=== PATIENT | male | born 1935 | race Caucasian/White ===

== ENCOUNTER 2020-01-08 09:00 | Emergency (ER) | payer MEDICARE, OTHER ==
[2020-01-08] MEDS ORDERED: ORPHENADRINE 30 MG/ML 2 ML VIAL IM STA (09:11)
[2020-01-08] MEDS ORDERED: MORPHINE SULFATE 4 MG/ML SYRINGE IM STA (09:11)
--- NOTE | 2020-01-08 09:12 | ED ---
Back Pain HPI - General Chief Complaint: Back Pain/Injury Stated Complaint: Back pain Time Seen by Provider: 01/08/20 09:02 Source: patient, RN notes reviewed, old records reviewed Limitations: no limitations - History of Present Illness Initial Comments: Patient's an 84-year-old male who presents emergency department today for evaluation for lower back and tailbone pain after he fell on Thursday. Patient reports that he was pulling up a nail from a floorboard with a hammer, gave a pull and fell backward onto his buttocks. Patient denies any head or neck injury. Patient reports he has pain with range of motion of his back since that time and pain with sitting. Patient states she's been taking aspirin at home. He denies any saddle anesthesias or abdominal pain. He denies any chest pain shortness of breath, abdominal pain. He denies dysuria or hematuria. He reports that he's had difficult time with having a bowel movement just she'll pain with sitting on the toilet. - Related Data Home Medications Medication Instructions Recorded Confirmed Aspirin EC [Ecotrin Low Dose] 81 mg PO DAILY 01/08/20 01/08/20 Atorvastatin [Lipitor] 20 mg PO DAILY 01/08/20 01/08/20 Previous Rx's Medication Instructions Recorded Acetaminophen-Codeine 300-30mg 1 tab PO Q6H PRN 3 Days #12 tablet 01/08/20 [Tylenol w/codeine #3] Orphenadrine [Norflex] 100 mg PO ONCE #12 tablet.er 01/08/20 amLODIPine [Norvasc] 5 mg PO DAILY #14 tab 01/08/20 bisacodyL [Dulcolax] 5 mg PO DAILY #14 tablet. 01/08/20 Allergies Allergy/AdvReac Type Severity Reaction Status Date / Time No Known Allergies Allergy Verified 01/08/20 10:21 Review of Systems ROS Statement: Those systems with pertinent positive or pertinent negative responses have been documented in the HPI. ROS Other: All systems not noted in ROS Statement are negative. Past Medical History Past Medical History: CVA/TIA, Hyperlipidemia History of Any Multi-Drug Resistant Organisms: None Reported Past Surgical History: No Surgical Hx Reported Past Psychological History: No Psychological Hx Reported Smoking Status: Never smoker Past Alcohol Use History: None Reported Past Drug Use History: None Reported General Exam - General Exam Comments Initial Comments: 84-year-old male. Alert and oriented 3. No distress. Limitations: no limitations General appearance: alert, in no apparent distress Head exam: Present: atraumatic, normocephalic, normal inspection Eye exam: Present: normal appearance, PERRL, EOMI. Absent: scleral icterus, conjunctival injection, periorbital swelling ENT exam: Present: normal exam, mucous membranes moist Neck exam: Present: normal inspection. Absent: tenderness, meningismus, lymphadenopathy Respiratory exam: Present: normal lung sounds bilaterally. Absent: respiratory distress, wheezes, rales, rhonchi, stridor Cardiovascular Exam: Present: regular rate, normal rhythm, normal heart sounds. Absent: systolic murmur, diastolic murmur, rubs, gallop, clicks GI/Abdominal exam: Present: soft, normal bowel sounds. Absent: distended, tenderness, guarding, rebound, rigid Extremities exam: Present: normal inspection, full ROM, normal capillary refill. Absent: tenderness, pedal edema, joint swelling, calf tenderness Back exam: Present: normal inspection, tenderness (coccyx and lumbar spine) Neurological exam: Present: alert, oriented X3, CN II-XII intact Psychiatric exam: Present: normal affect, normal mood Skin exam: Present: warm, dry, intact, normal color. Absent: rash Course Vital Signs 01/08/20 09:06 Temperature 98.7 F Pulse Rate 60 Respiratory 18 Rate Blood Pressure 157/108 O2 Sat by Pulse 94 L Oximetry Medical Decision Making - Medical Decision Making Patient is a pleasant 84-year-old male who presents the emergency department today with lumbar back pain pain with movement and sitting after falling onto his buttocks from ripping up a nail from a floor board. At this time Patient reports pain is improved with laying down. It's worse with sitting. And the Patient has normal pulses and is neurovascularly intact in lower extremities. He denies abdominal pain or other complaints. X-ray showed no evidence compression fracture but evidence of degenerative disc disease. There is evidence of a 4.5 cm abdominal aortic aneurysm. Patient reports that he is aware of this. He reports that this is monitored in [place]. He reports he had an ultrasound done 1 year ago he believes it measured to be near 4 cm at that time. We discussed these findings that Patient should've follow-up again for reevaluation and can give the Patient follow-up for a back specialist as well as vascular specialist in the area. He reports that he does not take blood pres sure medication will put the Patient on a low-dose Bystolic, BP is is 150/100 and ER. I discussed the Patient will be treated for coccyx contusion and given prescription for pain medication and stool softeners use as well. I discussed the Patient needs to apply heat and ice over the area and also to use a doughnut pillow to take the pressure off the coccyx for pain. - Radiology Data Radiology results: report reviewed X-ray of sacrum coccyx is normal without any fracture. No acute fracture dislocation seen on lumbar spine. Disposition Clinical Impression: Lower back pain, Coccyx contusion, Abdominal aortic aneurysm (AAA) 3.0 cm to 5.5 cm in diameter in male, Single episode of hypertension Disposition: HOME SELF-CARE Condition: Good Instructions (If sedation given, give patient instructions): Acute Low Back Pain (ED) Additional Instructions: Patient has a take the medication as prescribed. He can use stool softeners to help promote bowel movements as well. Recommended using a "doughnut pillow" To take pressure off of the coccyx and lower back when sitting. Patient should follow-up with PCP Dr. Santos for hypertension and Back pain continues to persist, Follow-up with orthopedic back specialist Dr. Humphrey. Also with a known history of Aortic anuerysm you can follow up with Vascular surgery. Return to ED if any alarming signs or symptoms occur Prescriptions: bisacodyL [Dulcolax] 5 mg PO DAILY #14 tablet. Orphenadrine [Norflex] 100 mg PO ONCE #12 tablet.er amLODIPine [Norvasc] 5 mg PO DAILY #14 tab Acetaminophen-Codeine 300-30mg [Tylenol w/codeine #3] 1 tab PO Q6H PRN 3 Days #12 tablet PRN Reason: Pain Is patient prescribed a controlled substance at d/c from ED?: Yes If prescribed controlled substance>3 days was MAPS reviewed?: Prescribed <3 Days If opioid is for acute pain is fill amount 7 days or less?: Yes If Rx opioid, was Start Talking consent form obtained?: Yes Referrals: None,Stated [Primary Care Provider] - 1-2 days Taurus Santos [STAFF PHYSICIAN] - 1-2 days Pedro Bob DO [Doctor of Osteopathic Medicine] - 1-2 days Caleb Schrader DO [Doctor of Osteopathic Medicine] - 1-2 days Time of Disposition: 10:27
[2020-01-08 09:23] VITALS: BP 157/108; PULSE 60; RESP 18; TEMP 98.7
--- NOTE | 2020-01-08 09:55 | XR ---
EXAMINATION TYPE: XR lumbar spine 2 or 3V DATE OF EXAM: 01/08/2020 CLINICAL HISTORY: pain TECHNIQUE: Three views of the lumbar spine are submitted. COMPARISON: None. FINDINGS: There are 5 lumbar type vertebral bodies identified. The lumbar spine shows satisfactory alignment w ithout evidence of acute fracture or dislocation. Vertebral body heights are within normal limits. Mild multilevel degenerative disc disease and spondylosis. 4.5 cm aneurysm of the distal abdominal ao rta. IMPRESSION: No acute fracture or dislocation is seen in the lumbar spine. ICD 10 NO FRACTURE, INITIAL EVALUATION
--- NOTE | 2020-01-08 09:56 | XR ---
EXAMINATION TYPE: XR sacrum coccyx DATE OF EXAM: 01/08/2020 CLINICAL HISTORY: pain TECHNIQUE: Three views of the sacrum and coccyx are submitted. COMPARISON: Sacral alae appear symmetric. No evidence for fracture or bony lesion. Sacroiliac joints are within normal limits. Visualized coccygeal segments are free of fracture or lesion. IMPRESSION: Normal study
[2020-01-08] MEDS ORDERED: ACET/COD 300 MG/30 MG STARTER PACK 6 TAB BTL PO STA (11:09)
== END 2020-01-08 11:34 | disposition home or self-care (01) ==
LOC: EC 09:00
DX: S30.0XXA Contusion of lower back and pelvis, initial encounter (principal); I71.4 Abdominal aortic aneurysm, without rupture; I10 Essential (primary) hypertension; E78.5 Hyperlipidemia, unspecified; Z79.899 Other long term (current) drug therapy; Z79.82 Long term (current) use of aspirin; Z86.73 Personal history of transient ischemic attack (TIA), and cerebral infarction without residual deficits; W18.30XA Fall on same level, unspecified, initial encounter; Y93.89 Activity, other specified
CPT/HCPCS: 99284 ×2; 96372 ×3; 72100; 72220; J2270; J2360

== ENCOUNTER 2020-02-01 10:39 | Emergency (ER) | payer MEDICARE, OTHER ==
[2020-02-01 10:49] VITALS: RESP 18; TEMP 98.3
[2020-02-01] MEDS ORDERED: SODIUM CHLORIDE 0.9% 1,000 ML IV STA (11:55)
[2020-02-01 12:17] LABS: Appearance,Urine Clear (Clear); Bilirubin,Urine Negative (Negative); Blood,Urine Negative (Negative); Color,Urine Yellow; Glucose,Urine (UA) Negative (Negative); Ketones,Urine Negative (Negative); Leukocyte Esterase,Urine Negative (Negative); Nitrite,Urine Negative (Negative); PH, Urine 6.5 (5.0-8.0); Protein,Urine Negative (Negative); Specific Gravity,Urine 1.018 (1.001-1.035); Urobilinogen,Urine <2.0 mg/dL (<2.0)
[2020-02-01 12:18] LABS: Basophils % (A) 0 %; Eosinophils # (A) 0.1 k/uL (0-0.7); Eosinophils % (A) 1 %; HCT 47.1 % (39.0-53.0); HGB 15.3 gm/dL (13.0-17.5); Lymphocytes # (A) 2.4 k/uL (1.0-4.8); Lymphocytes % (A) 32 %; MCH 31.3 pg (25.0-35.0); MCHC 32.5 g/dL (31.0-37.0); MCV 96.5 fL (80.0-100.0); Mean Platelet Volume 8.6; Monocytes # (A) 0.5 k/uL (0-1.0); Monocytes % (A) 6 %; Neutrophils # (A) 4.3 k/uL (1.3-7.7); Neutrophils % (A) 58 %; Platelet Count 167 k/uL (150-450); RBC 4.87 m/uL (4.30-5.90); RDW 13.4 % (11.5-15.5); WBC 7.4 k/uL (3.8-10.6)
[2020-02-01 12:20] LABS: ALT 17 U/L (4-49); AST 25 U/L (17-59); African American GFR (CKD) >90 (>60 ml/min/1.73 sqM); Albumin 3.4 g/dL (3.5-5.0); Alkaline Phosphatase 104 U/L (38-126); Amylase 44 U/L (30-110); Anion Gap 5 mmol/L; Blood Urea Nitrogen 11 mg/dL (9-20); Calcium 8.6 mg/dL (8.4-10.2); Carbon Dioxide 26 mmol/L (22-30); Chloride 109 mmol/L (98-107); Glucose 117 mg/dL (74-99); Lipase 64 U/L (23-300); Non-African American GFR(CKD) >90 (>60 ml/min/1.73 sqM); Potassium 4.1 mmol/L (3.5-5.1); Sodium 140 mmol/L (137-145); Total Bilirubin 0.6 mg/dL (0.2-1.3); Total Protein 6.2 g/dL (6.3-8.2)
[2020-02-01 12:22] LABS: INR 0.9 (<1.2); Partial Thromboplastin Time 22.4 sec (22.0-30.0); Prothrombin Time 9.8 sec (9.0-12.0)
--- NOTE | 2020-02-01 12:35 | ED ---
Extremity Problem HPI - General Chief complaint: Extremity Problem,Nontraumatic Stated complaint: Groin Pain Time Seen by Provider: 02/01/20 11:48 Source: EMS, RN notes reviewed, old records reviewed Mode of arrival: EMS Limitations: no limitations - History of Present Illness Initial comments: 84-year-old male presents return today with complaints of left-sided groin pain has been intermittent for the past 2 years. Patient reports symptoms have been intermittent. He reports he had an onset today but it didn't seem to improve until eating a blueberry muffin for breakfast. He reports it is a 4/10 now. He denies any change in stools or urination. He has a known history of AAA that his monitor with in [place]. He is here for the winter time. Patient states that he has no back pain. - Related Data Home Medications Medication Instructions Recorded Confirmed Aspirin EC [Ecotrin Low Dose] 81 mg PO DAILY 01/08/20 02/01/20 Atorvastatin [Lipitor] 20 mg PO DAILY 01/08/20 02/01/20 Allergies Allergy/AdvReac Type Severity Reaction Status Date / Time No Known Allergies Allergy Verified 02/01/20 13:22 Review of Systems ROS Statement: Those systems with pertinent positive or pertinent negative responses have been documented in the HPI. ROS Other: All systems not noted in ROS Statement are negative. Past Medical History Past Medical History: CVA/TIA, Hyperlipidemia History of Any Multi-Drug Resistant Organisms: None Reported Past Surgical History: No Surgical Hx Reported Past Psychological History: No Psychological Hx Reported Smoking Status: Former smoker Past Alcohol Use History: Occasional Past Drug Use History: None Reported General Exam - General Exam Comments Initial Comments: 84-year-old male. Alert and oriented. No distress. Limitations: no limitations General appearance: alert, in no apparent distress Head exam: Present: atraumatic, normocephalic, normal inspection Eye exam: Present: normal appearance, PERRL, EOMI. Absent: scleral icterus, conjunctival injection, periorbital swelling ENT exam: Present: normal exam, mucous membranes moist Neck exam: Present: normal inspection. Absent: tenderness, meningismus, lymphadenopathy Respiratory exam: Present: normal lung sounds bilaterally. Absent: respiratory distress, wheezes, rales, rhonchi, stridor Cardiovascular Exam: Present: regular rate, normal rhythm, normal heart sounds. Absent: systolic murmur, diastolic murmur, rubs, gallop, clicks GI/Abdominal exam: Present: soft, normal bowel sounds. Absent: distended, tenderness, guarding, rebound, rigid Extremities exam: Present: normal inspection, full ROM, normal capillary refill. Absent: tenderness, pedal edema, joint swelling, calf tenderness Back exam: Present: normal inspection, full ROM Neurological exam: Present: alert, oriented X3, CN II-XII intact Psychiatric exam: Present: normal affect, normal mood Skin exam: Present: warm, dry, intact, normal color. Absent: rash Course Vital Signs 02/01/20 10:41 Temperature 98.3 F Pulse Rate 86 Respiratory 18 Rate Blood Pressure 169/87 O2 Sat by Pulse 95 Oximetry Medical Decision Making - Medical Decision Making 84-year-old male presents emergency department today for evaluation which she complaint of left lower quadrant abdominal pain. Patient symptoms reportedly started intimately for the past 2 years. He states it seems worse today but did improve after eating a muffin. He has a known history of AAA aortic aneurysm which is being monitored by a physician in [place]. At this time Patient has no back pain. His normal pulses in lower extremities. No rash or evidence of hernia and left lower quadrant. Discussed conservative or possible diverticulitis of any onset of pain. At this time patient's labs reviewed and unremarkable. CT abdomen and pelvis shows evidence of aneurysm. Stable from patient's previous measurement that he states was 4.2 cm. He states that he has no other complaints at this time. Patient will be discharged with following up with primary care doctors locally. I discussed return parameters. - Lab Data Result diagrams: 02/01/20 10:45 02/01/20 11:59 Lab Results 02/01/20 02/01/20 02/01/20 Range/Units 10:45 11:59 11:59 WBC 7.4 (3.8-10.6) k/uL RBC 4.87 (4.30-5.90) m/uL Hgb 15.3 (13.0-17.5) gm/dL Hct 47.1 (39.0-53.0) % MCV 96.5 (80.0-100.0) fL MCH 31.3 (25.0-35.0) pg MCHC 32.5 (31.0-37.0) g/dL RDW 13.4 (11.5-15.5) % Plt Count 167 (150-450) k/uL MPV 8.6 Neutrophils % 58 % Lymphocytes % 32 % Monocytes % 6 % Eosinophils % 1 % Basophils % 0 % Neutrophils # 4.3 (1.3-7.7) k/uL Lymphocytes # 2.4 (1.0-4.8) k/uL Monocytes # 0.5 (0-1.0) k/uL Eosinophils # 0.1 (0-0.7) k/uL Basophils # 0.0 (0-0.2) k/uL PT 9.8 (9.0-12.0) sec INR 0.9 (<1.2) APTT 22.4 (22.0-30.0) sec Sodium (137-145) mmol/L Potassium (3.5-5.1) mmol/L Chloride (98-107) mmol/L Carbon Dioxide (22-30) mmol/L Anion Gap mmol/L BUN (9-20) mg/dL Creatinine (0.66-1.25) mg/dL Est GFR (CKD-EPI)AfAm (>60 ml/min/1.73 sqM) Est GFR (CKD-EPI)NonAf (>60 ml/min/1.73 sqM) Glucose (74-99) mg/dL Calcium (8.4-10.2) mg/dL Total Bilirubin (0.2-1.3) mg/dL AST (17-59) U/L ALT (4-49) U/L Alkaline Phosphatase (38-126) U/L Total Protein (6.3-8.2) g/dL Albumin (3.5-5.0) g/dL Amylase (30-110) U/L Lipase (23-300) U/L Urine Color Yellow Urine Appearance Clear (Clear) Urine pH 6.5 (5.0-8.0) Ur Specific [place] 1.018 (1.001-1.035) Urine Protein Negative (Negative) Urine Glucose (UA) Negative (Negative) Urine Ketones Negative (Negative) Urine Blood Negative (Negative) Urine Nitrite Negative (Negative) Urine Bilirubin Negative (Negative) Urine Urobilinogen <2.0 (<2.0) mg/dL Ur Leukocyte Esterase Negative (Negative) 02/01/20 Range/Units 11:59 WBC (3.8-10.6) k/uL RBC (4.30-5.90) m/uL Hgb (13.0-17.5) gm/dL Hct (39.0-53.0) % MCV (80.0-100.0) fL MCH (25.0-35.0) pg MCHC (31.0-37.0) g/dL RDW (11.5-15.5) % Plt Count (150-450) k/uL MPV Neutrophils % % Lymphocytes % % Monocytes % % Eosinophils % % Basophils % % Neutrophils # (1.3-7.7) k/uL Lymphocytes # (1.0-4.8) k/uL Monocytes # (0-1.0) k/uL Eosinophils # (0-0.7) k/uL Basophils # (0-0.2) k/uL PT (9.0-12.0) sec INR (<1.2) APTT (22.0-30.0) sec Sodium 140 (137-145) mmol/L Potassium 4.1 (3.5-5.1) mmol/L Chloride 109 H (98-107) mmol/L Carbon Dioxide 26 (22-30) mmol/L Anion Gap 5 mmol/L BUN 11 (9-20) mg/dL Creatinine 0.56 L (0.66-1.25) mg/dL Est GFR (CKD-EPI)AfAm >90 (>60 ml/min/1.73 sqM) Est GFR (CKD-EPI)NonAf >90 (>60 ml/min/1.73 sqM) Glucose 117 H (74-99) mg/dL Calcium 8.6 (8.4-10.2) mg/dL Total Bilirubin 0.6 (0.2-1.3) mg/dL AST 25 (17-59) U/L ALT 17 (4-49) U/L Alkaline Phosphatase 104 (38-126) U/L Total Protein 6.2 L (6.3-8.2) g/dL Albumin 3.4 L (3.5-5.0) g/dL Amylase 44 (30-110) U/L Lipase 64 (23-300) U/L Urine Color Urine Appearance (Clear) Urine pH (5.0-8.0) Ur Specific [place] (1.001-1.035) Urine Protein (Negative) Urine Glucose (UA) (Negative) Urine Ketones (Negative) Urine Blood (Negative) Urine Nitrite (Negative) Urine Bilirubin (Negative) Urine Urobilinogen (<2.0) mg/dL Ur Leukocyte Esterase (Negative) - Radiology Data Radiology results: report reviewed Abdominal aortic aneurysm and incorporate to 7 days. Some focal bulging 3.5 cm fusiform prominence of the present superior to the aneurysm. Hypotension that he is within the liver may be cysts. Other etiologies however are not excluded. Mild diverticulosis without evidence of acute diverticulitis. No suspicious left lower quadrant abnormality to account for patient's pain. Disposition Clinical Impression: LLQ pain Disposition: HOME SELF-CARE Condition: Good Instructions (If sedation given, give patient instructions): Chronic Abdominal Pain (ED) Additional Instructions: Follow-up with primary care doctors. Return to the ED if any alarming signs or symptoms occur. Recommended following up with vascular surgeon in regards to aortic aneurysm. Is patient prescribed a controlled substance at d/c from ED?: No Referrals: Nonstaff,Physician [Primary Care Provider] - 1-2 days Angeles Cueva DO [STAFF PHYSICIAN] - 1-2 days Taurus Santos [STAFF PHYSICIAN] - 1-2 days Time of Disposition: 13:59
--- NOTE | 2020-02-01 13:33 | CT ---
EXAMINATION TYPE: CT abdomen pelvis w con DATE OF EXAM: 02/01/2020 COMPARISON: None INDICATION: LLQ pain DLP: 1721.7 mGycm, Automated exposure control for dose reduction was used. CONTRAST: 100 mL of Isovue 300. Study performed without Oral Contrast TECHNIQUE: Axial images were obtained from above the diaphragm to the pubic rami in the axial plane a t 5 mm thick sections. Reconstructed images are reviewed on the computer in the coronal plane. FINDINGS: Limited CT sections are obtained the lung bases. Small amount of pulmonary fibrosis may be in the pe riphery of the lung bases. Coronary artery calcification is present. CT ABDOMEN: Liver: 2.3 cm hypodensities are within the medial right lobe liver likely represent cysts. Spleen: Normal Pancreas: Normal Adrenal glands: The adrenal glands are normal. Gallbladder: Normal Kidneys: No masses are evident. No hydronephrosis is present. No cysts are present. Delayed images were obtained through the kidneys, which remain unremarkable. Aorta: Vascular calcification is within the aorta. There is some fusiform prominence of the mid abdo jaylene aorta with an AP dimension of 3.5 cm. Focal bulge may be present. Series 201 image 54. More inf erior there is aneurysm with an AP diameter 4.2 cm. Inferior vena cava: Normal. CT PELVIS: Loops of bowel within the abdomen and pelvis are normal. The study is without oral contrast limit ing bowel evaluation. Appendix: Not identified. No suspicious dilated tubular structure or inflammatory changes are evident . Urinary bladder: Normal. Genitourinary structures: Prostate has some prominence and calcification. Osseous structures: No suspicious lytic or sclerotic lesions. Degenerative changes and some mild comp ression deformities within the thoracolumbar junction are present. IMPRESSIONS: 1. Abdominal aortic aneurysm measuring 4.2 cm. Some focal bulging at area of 3.5 cm fusiform promine nce may be present just superior to the aneurysm. 2. Hypodensities within the liver may be cysts. Other etiologies however are not excluded. 3. Mild diverticulosis without evidence of acute diverticulitis. 4. No suspicious left lower quadrant abnormality to account for patient's pain
[2020-02-01 14:37] VITALS: BP 165/78; PULSE 78
== END 2020-02-01 14:43 | disposition home or self-care (01) ==
LOC: EC 10:39
DX: I71.4 Abdominal aortic aneurysm, without rupture (principal); R10.32 Left lower quadrant pain; E78.5 Hyperlipidemia, unspecified; Z79.82 Long term (current) use of aspirin; Z79.899 Other long term (current) drug therapy; Z86.73 Personal history of transient ischemic attack (TIA), and cerebral infarction without residual deficits; Z87.891 Personal history of nicotine dependence
CPT/HCPCS: 36415; 80053; 82150; 83690; 85025; 85610; 85730; 81003; 74177; 99285; 96360; 96361 ×2; Q9967

== ENCOUNTER → 2020-06-19 | Outpatient (CLI) | payer MEDICARE, OTHER ==
--- NOTE | 2020-06-19 11:23 | US ---
EXAMINATION TYPE: US duplex aorta DATE OF EXAM: 06/19/2020 COMPARISON: CT February 01, 2020 CLINICAL HISTORY: Z13.6 screening AAA. EXAM MEASUREMENTS: Abdominal Aorta: Proximal: obscured by overlying midline bowel gas Mid: 2.6 x 2.4cm Distal: 3.7 x 4.2cm Right Iliac: 1.4 x 1.4cm Left Iliac: 1.4 x 1.3cm Distal AAA IMPRESSION: Distal AAA up to 4.2 cm transversely over a roughly 4 cm length. No extension into common iliac arteries. At minimum annual ultrasound surveillance is advised.
== END | disposition home or self-care (01) ==
LOC: RADUSWWP 10:23
PROVIDERS: ATTEND Family Medicine
DX: Z13.6 Encounter for screening for cardiovascular disorders (principal); I71.4 Abdominal aortic aneurysm, without rupture
CPT/HCPCS: 93979

== ENCOUNTER 2021-08-22 10:22 | Day surgery (SDC) | payer MEDICARE, OTHER ==
[~2021-08-22 10:22] MED LIST: ALPRAZolam 0.25 MG TAB PO PRN; ALPRAZolam 0.5 MG TAB PO PRN; ASPIRIN 325 MG TAB PO STA; ATORVASTATIN 80 MG TAB PO STA; HEPARIN SODIUM,PORCINE 10,000 UNIT in SODIUM CHLORIDE 0.9% 1,000 ML IRRIGATION PRN; HEPARIN SODIUM,PORCINE 2,500 UNIT in SODIUM CHLORIDE 0.9% 250 ML IRRIGATION PRN; NITROGLYCERIN SL TABS 0.4 MG TAB SUBLINGUAL PRN; SODIUM CHLORIDE 0.9% 1,000 ML in EMPTY BAG 1 BAG IV SCH
[2021-08-22 10:56] VITALS: TEMP 98.1
[2021-08-22 10:56] LABS: Basophils % (A) 0 %; Eosinophils # (A) 0.1 k/uL (0-0.7); Eosinophils % (A) 1 %; HGB 15.7 gm/dL (13.0-17.5); Lymphocytes # (A) 2.4 k/uL (1.0-4.8); Lymphocytes % (A) 37 %; MCH 33.2 pg (25.0-35.0); MCHC 32.7 g/dL (31.0-37.0); MCV 101.7 fL (80.0-100.0); Macrocytosis Slight; Mean Platelet Volume 8.4; Monocytes # (A) 0.4 k/uL (0-1.0); Monocytes % (A) 6 %; Neutrophils # (A) 3.5 k/uL (1.3-7.7); Neutrophils % (A) 53 %; Platelet Count 164 k/uL (150-450); RBC 4.72 m/uL (4.30-5.90); RDW 13.3 % (11.5-15.5); WBC 6.5 k/uL (3.8-10.6)
[2021-08-22] MEDS ORDERED: SODIUM CHLORIDE 0.9% 1,000 ML IV ONE (10:56)
[2021-08-22 11:06] LABS: African American GFR (CKD) >90 (>60 ml/min/1.73 sqM); Anion Gap 7 mmol/L; Blood Urea Nitrogen 9 mg/dL (9-20); Calcium 8.6 mg/dL (8.4-10.2); Carbon Dioxide 25 mmol/L (22-30); Chloride 107 mmol/L (98-107); Glucose 131 mg/dL (74-99); Non-African American GFR(CKD) >90 (>60 ml/min/1.73 sqM); Sodium 139 mmol/L (137-145)
[2021-08-22 11:09] LABS: Potassium 4.8 mmol/L (3.5-5.1)
[2021-08-22] MEDS ORDERED: fentaNYL (PF) 50 MCG/ML 2 ML AMP ONE (12:13)
[2021-08-22] MEDS ORDERED: HEPARIN SODIUM 1,000 UN/ML (10ML VL) ONE (12:13)
[2021-08-22] MEDS ORDERED: VERAPAMIL 2.5 MG/ML 2 ML AMP ONE (12:13)
[2021-08-22] MEDS ORDERED: fentaNYL (PF) 50 MCG/ML 2 ML AMP IVP ONE (12:34)
[2021-08-22] MEDS ORDERED: LIDOCAINE 1% INJ 10MG/ML (5 ML VIAL-PF) SQ ONE (12:35)
[2021-08-22] MEDS ORDERED: MIDAZOLAM 2 MG/2 ML VIAL IVP ONE (12:35)
[2021-08-22] MEDS ORDERED: VERAPAMIL SYRINGE (5 MG/10 ML) INTRAARTER ONE ×2 (12:37→12:40)
[2021-08-22] MEDS ORDERED: HEPARIN SODIUM 1,000 UN/ML (10ML VL) IV ONE (12:45)
[2021-08-22] MEDS ORDERED: IOPAMIDOL-370 50ML BTL INJ ONE (13:05)
[2021-08-22] MEDS ORDERED: IOPAMIDOL-370 125ML BTL INJ ONE (13:05)
--- NOTE | 2021-08-22 13:13 | P.CARDCATH ---
Description of Procedure: PROCEDURES PERFORMED: Left heart catheterization, bilateral coronary angiography, left ventriculogram INDICATION: Cardiomyopathy, severely elevated calcium score HISTORY: Patient is pleasant 85-year-old male with history of elevated calcium score who has been having dyspnea with mild to moderate activity and was found to have mildly decreased ejection fraction 40-45% by echo. Therefore heart catheterization was recommended. CONSENT:I have discussed the risks, benefits and alternative therapies for the above-mentioned procedure and for both sedation/analgesia as well as necessary blood product administration, if indicated, as they pertain to this patient. The patient has indicated understanding and acceptance of the risks and procedures discussed. PROCEDURE: After the risks, benefits and alternatives of the above mentioned procedure explained in detail with the patient, informed consent was obtained. Patient was taken to the catheterization lab and prepped and draped in usual fashion. 1% lidocaine was used to anesthetize the right radial artery. A 6- Cymro sheath was placed in the right radial artery using modified Seldinger technique. Left coronary angiography was performed with a 5-Cymro JL 3.5 catheter and right coronary angiography was performed with a 5-Cymro JR5 catheter in various views. A 5-Cymro FR5 catheter was inserted into the left ventricle and pressure measurements were obtained. A 6-Cymro angled pigtail catheter was then placed in the left ventricle and left ventriculogram was per formed in the BOYLE projection with power injection. The right radial sheath was removed and a TR band was placed with hemostasis achieved. The patient tolerated the procedure well. Patient was transported back to the post catheterization holding area in stable condition. Conscious Sedation: Patient was monitored under the direct supervision of vision of myself for conscious sedation using Versed and fentanyl for a total duration of 30 minutes HEMODYNAMICS: Aorta: 162/88 LV: 156/8, LVEDP 30 SELECTIVE CORONARY ARTERIOGRAPHY: LEFT MAIN: The left main is a large caliber vessel which bifurcates into the LAD and circumflex. There is no significant stenosis. LEFT ANTERIOR DESCENDING CORONARY ARTERY: LAD is a large caliber vessel which wraps around to the apex. There are mild luminal irregularities with calcification noted with a resultant 20-30% mid LAD stenosis. LEFT CIRCUMFLEX CORONARY ARTERY: Left circumflex is a moderate caliber vessel with mild luminal irregularities in 10-20% stenosis. RIGHT CORONARY ARTERY: The right coronary artery is a large caliber vessel which gives off a PDA and PLV branch and is the dominant vessel. There are mild luminal irregularities. LEFT VENTRICULOGRAM: Left ventricular ejection fraction is 45-50% with mild global hypokinesis. There does appear to be deep "crypts" noted mainly along the anterior wall and apex which may be seen with LV non-compaction. Recommend correlation with 2-D echo. FINAL IMPRESSION: 1. Mild CAD as described above including 2030% mid LAD stenosis and otherwise mild luminal irregularities. 2. Mild nonischemic cardiomyopathy ejection fraction 45-50%. Deep "crypts" seen which may be seen with LV non-compaction. Clinical correlation recommended. 3. Elevated left sided filling pressures PLAN: 1. Aggressive risk factor modification per most recent ACC/AHA guidelines. 2. Follow-up in the office in 1-2 weeks.
[2021-08-22 16:13] VITALS: PULSE 52; RESP 16
[2021-08-22 16:16] VITALS: BP 140/79
== END 2021-08-22 16:49 | disposition home or self-care (01) ==
LOC: CATHCVL 10:22
PROVIDERS: ATTEND Internal Medicine
DX: I25.10 Atherosclerotic heart disease of native coronary artery without angina pectoris (principal); I25.84 Coronary atherosclerosis due to calcified coronary lesion; I42.8 Other cardiomyopathies; I44.7 Left bundle-branch block, unspecified; D72.829 Elevated white blood cell count, unspecified; E78.5 Hyperlipidemia, unspecified; Z20.822 Contact with and (suspected) exposure to COVID-19; I35.0 Nonrheumatic aortic (valve) stenosis; Z72.0 Tobacco use; Z79.899 Other long term (current) drug therapy; D72.89 Other specified disorders of white blood cells
CPT/HCPCS: 93458; 80048; 85025; 87635; C1769 ×3; C1894; J2250; J2001; J3010; J1644; Q9967 ×2

== ENCOUNTER 2022-08-14 15:53 | Emergency (ER) | payer MEDICARE, OTHER ==
[2022-08-14 16:21] VITALS: TEMP 98.3
--- NOTE | 2022-08-14 16:29 | ED ---
General Adult HPI - General Chief complaint: Fall Stated complaint: Fall Time Seen by Provider: 08/14/22 16:04 Source: EMS Mode of arrival: EMS Limitations: no limitations - History of Present Illness Initial comments: This patient is an 86-year-old man who is brought to have evaluation after he fell at home. Patient reports that the fall occurred approximately 10 hours before his arrival here. He states that he was then too weak to get up after the fall. Patient denies feeling like he has any injury. He does state that he drinks pretty much every day and that this may have contributed to the fall. Patient denies headache. He denies neurologic symptoms. Onset/Timin -: hour(s) Severity scale (1-10): 0 Improves with: none Worsens with: none Associated Symptoms: weakness Treatments Prior to Arrival: none - Related Data Home Medications Medication Instructions Recorded Confirmed Atorvastatin [Lipitor] 20 mg PO DAILY 01/08/20 08/14/22 Apixaban [Eliquis] 5 mg PO DAILY 08/14/22 08/14/22 lisinopriL 2.5 mg PO DAILY 08/14/22 08/14/22 Allergies Allergy/AdvReac Type Severity Reaction Status Date / Time No Known Allergies Allergy Verified 08/14/22 18:03 Review of Systems ROS Statement: Those systems with pertinent positive or pertinent negative responses have been documented in the HPI. ROS Other: All systems not noted in ROS Statement are negative. Constitutional: Reports: weakness. Denies: fever, chills Eyes: Denies: vision change Respiratory: Denies: cough, dyspnea Cardiovascular: Denies: chest pain, palpitations, edema, syncope Gastrointestinal: Denies: abdominal pain, vomiting, diarrhea Genitourinary: Denies: dysuria, hematuria Musculoskeletal: Denies: back pain Skin: Denies: rash Neurological: Reports: weakness. Denies: headache, numbness Past Medical History Past Medical History: CVA/TIA, Hyperlipidemia, Hypertension History of Any Multi-Drug Resistant Organisms: None Reported Past Surgical History: No Surgical Hx Reported, Tonsillectomy Past Anesthesia/Blood Transfusion Reactions: No Reported Reaction Smoking Status: Former smoker, Light tobacco smoker - Past Family History Father Family Medical History: No Reported History Mother Family Medical History: No Reported History General Exam Limitations: no limitations General appearance: alert, in no apparent distress Head exam: Present: atraumatic, normocephalic Eye exam: Present: normal appearance. Absent: scleral icterus, conjunctival injection Neck exam: Present: normal inspection, full ROM. Absent: tenderness Respiratory exam: Present: normal lung sounds bilaterally. Absent: respiratory distress, wheezes, rales, rhonchi, stridor, chest wall tenderness, accessory muscle use Cardiovascular Exam: Present: regular rate, normal rhythm, normal heart sounds. Absent: systolic murmur, diastolic murmur, rubs, gallop GI/Abdominal exam: Present: soft. Absent: distended, tenderness, guarding, rebound, rigid, mass Extremities exam: Present: normal inspection, normal capillary refill. Absent: pedal edema, calf tenderness Back exam: Present: normal inspection. Absent: CVA tenderness (R), CVA tenderness (L), vertebral tenderness Neurological exam: Present: alert, CN II-XII intact. Absent: motor sensory deficit Expanded Neurological exam: Present: protecting the airway. Absent: receptive aphasia, expressive aphasia, total aphasia Patient oriented to: Present: person, place. Absent: time Speech: Absent: receptive aphasia, expressive aphasia, total aphasia Cranial nerves: EOM's Intact: Normal, Tongue Deviation: Normal, Facial Sensation: Normal Motor strength exam: RUE: 5, LUE: 5, RLE: 5, LLE: 5 Eye Response: (4) open spontaneously Motor Response: (6) obeys commands Verbal Response: (5) oriented Hope Total: 15 Skin exam: Present: warm, dry, intact, normal color. Absent: rash Course Vital Signs 08/14/22 08/14/22 08/14/22 16:08 17:37 19:04 Temperature 98.3 F Pulse Rate 90 124 H 96 Respiratory 18 18 18 Rate Blood Pressure 148/106 158/112 154/100 O2 Sat by Pulse 97 96 96 Oximetry 08/14/22 08/14/22 08/15/22 22:33 23:33 00:27 Temperature Pulse Rate 96 129 H 93 Respiratory 18 18 18 Rate Blood Pressure 171/108 177/131 144/107 O2 Sat by Pulse 97 94 L 92 L Oximetry 08/15/22 08/15/22 00:43 01:04 Temperature Pulse Rate 86 88 Respiratory 18 20 Rate Blood Pressure 144/94 138/100 O2 Sat by Pulse 95 95 Oximetry EKG Findings - EKG Results: EKG: interpreted by VERONICA, sinus rhythm EKG shows: tachycardia (Rate 126 bpm) Medical Decision Making - Medical Decision Making This patient is an 86-year-old man wrought to emergency department after he repo rtedly had fall 10 hours prior and had keyona in the hallway. The patient's initially found to have mild elevation of troponin, mild elevation of CPK, and patient was in going to be admitted to have serial troponins, cardiology consultation. The patient subsequently had some aphasia developing and computed tomography scan subsequently ordered that shows left basal ganglia hemorrhage. The case is discussed with patient's son (Raul Hemphill [phone]), who does have power of assistant attorney general for medical care. We discussed the need for neurosurgical care and he agrees to transfer to [facility]. Case is discussed with Dr. Trammell, who will accept transfer of patient to be seen by neurosurgery. The patient is given labetalol to lower blood pressure and heart rate, given what appears to be acute hypertensive bleed. Patient continues to deny headache and is alert, moving all 4 extremities prior to transfer - Lab Data Result diagrams: 08/14/22 16:40 08/14/22 16:40 Lab Results 08/14/22 08/14/22 08/14/22 Range/Units 16:40 16:40 16:40 WBC 10.3 (3.8-10.6) k/uL RBC 4.66 (4.30-5.90) m/uL Hgb 14.7 (13.0-17.5) gm/dL Hct 45.3 (39.0-53.0) % MCV 97.2 (80.0-100.0) fL MCH 31.5 (25.0-35.0) pg MCHC 32.4 (31.0-37.0) g/dL RDW 13.3 (11.5-15.5) % Plt Count 121 L (150-450) k/uL MPV 8.7 Neutrophils % 79 % Lymphocytes % 13 % Monocytes % 7 % Eosinophils % 0 % Basophils % 0 % Neutrophils # 8.1 H (1.3-7.7) k/uL Lymphocytes # 1.3 (1.0-4.8) k/uL Monocytes # 0.7 (0-1.0) k/uL Eosinophils # 0.0 (0-0.7) k/uL Basophils # 0.0 (0-0.2) k/uL Sodium 140 (137-145) mmol/L Potassium 3.9 (3.5-5.1) mmol/L Chloride 106 (98-107) mmol/L Carbon Dioxide 26 (22-30) mmol/L Anion Gap 8 mmol/L BUN 14 (9-20) mg/dL Creatinine 0.68 (0.66-1.25) mg/dL Est GFR (CKD-EPI)AfAm >90 (>60 ml/min/1.73 sqM) Est GFR (CKD-EPI)NonAf 87 (>60 ml/min/1.73 sqM) Glucose 143 H (74-99) mg/dL Plasma Lactic Acid Angel 1.6 (0.7-2.0) mmol/L Calcium 8.6 (8.4-10.2) mg/dL Magnesium 1.9 (1.6-2.3) mg/dL Total Bilirubin 1.2 (0.2-1.3) mg/dL AST 58 (17-59) U/L ALT 22 (4-49) U/L Alkaline Phosphatase 79 (38-126) U/L Creatine Kinase (55-170) U/L CK-MB (CK-2) (0.0-2.4) ng/mL Troponin I (0.000-0.034) ng/mL Total Protein 6.4 (6.3-8.2) g/dL Albumin 3.7 (3.5-5.0) g/dL Serum Alcohol <10 mg/dL Coronavirus (PCR) (Not Detectd) 08/14/22 08/14/22 08/14/22 Range/Units 16:40 16:40 17:24 WBC (3.8-10.6) k/uL RBC (4.30-5.90) m/uL Hgb (13.0-17.5) gm/dL Hct (39.0-53.0) % MCV (80.0-100.0) fL MCH (25.0-35.0) pg MCHC (31.0-37.0) g/dL RDW (11.5-15.5) % Plt Count (150-450) k/uL MPV Neutrophils % % Lymphocytes % % Monocytes % % Eosinophils % % Basophils % % Neutrophils # (1.3-7.7) k/uL Lymphocytes # (1.0-4.8) k/uL Monocytes # (0-1.0) k/uL Eosinophils # (0-0.7) k/uL Basophils # (0-0.2) k/uL Sodium (137-145) mmol/L Potassium (3.5-5.1) mmol/L Chloride (98-107) mmol/L Carbon Dioxide (22-30) mmol/L Anion Gap mmol/L BUN (9-20) mg/dL Creatinine (0.66-1.25) mg/dL Est GFR (CKD-EPI)AfAm (>60 ml/min/1.73 sqM) Est GFR (CKD-EPI)NonAf (>60 ml/min/1.73 sqM) Glucose (74-99) mg/dL Plasma Lactic Acid Angel (0.7-2.0) mmol/L Calcium (8.4-10.2) mg/dL Magnesium (1.6-2.3) mg/dL Total Bilirubin (0.2-1.3) mg/dL AST (17-59) U/L ALT (4-49) U/L Alkaline Phosphatase (38-126) U/L Creatine Kinase 1013 H* (55-170) U/L CK-MB (CK-2) (0.0-2.4) ng/mL Troponin I 0.122 H* (0.000-0.034) ng/mL Total Protein (6.3-8.2) g/dL Albumin (3.5-5.0) g/dL Serum Alcohol mg/dL Coronavirus (PCR) Not Detected (Not Detectd) 08/14/22 08/14/22 Range/Units 17:24 22:10 WBC (3.8-10.6) k/uL RBC (4.30-5.90) m/uL Hgb (13.0-17.5) gm/dL Hct (39.0-53.0) % MCV (80.0-100.0) fL MCH (25.0-35.0) pg MCHC (31.0-37.0) g/dL RDW (11.5-15.5) % Plt Count (150-450) k/uL MPV Neutrophils % % Lymphocytes % % Monocytes % % Eosinophils % % Basophils % % Neutrophils # (1.3-7.7) k/uL Lymphocytes # (1.0-4.8) k/uL Monocytes # (0-1.0) k/uL Eosinophils # (0-0.7) k/uL Basophils # (0-0.2) k/uL Sodium (137-145) mmol/L Potassium (3.5-5.1) mmol/L Chloride (98-107) mmol/L Carbon Dioxide (22-30) mmol/L Anion Gap mmol/L BUN (9-20) mg/dL Creatinine (0.66-1.25) mg/dL Est GFR (CKD-EPI)AfAm (>60 ml/min/1.73 sqM) Est GFR (CKD-EPI)NonAf (>60 ml/min/1.73 sqM) Glucose (74-99) mg/dL Plasma Lactic Acid Angel (0.7-2.0) mmol/L Calcium (8.4-10.2) mg/dL Magnesium (1.6-2.3) mg/dL Total Bilirubin (0.2-1.3) mg/dL AST (17-59) U/L ALT (4-49) U/L Alkaline Phosphatase (38-126) U/L Creatine Kinase (55-170) U/L CK-MB (CK-2) 6.0 H (0.0-2.4) ng/mL Troponin I 0.132 H* (0.000-0.034) ng/mL Total Protein (6.3-8.2) g/dL Albumin (3.5-5.0) g/dL Serum Alcohol mg/dL Coronavirus (PCR) (Not Detectd) Disposition Clinical Impression: Fall, Intracranial hemorrhage Disposition: OTHER INSTITUTION NOT DEFINED Condition: Fair Is patient prescribed a controlled substance at d/c from ED?: No Referrals: None,Stated [Primary Care Provider] - 1-2 days - Out of Hospital Transfer - Req. Specs Out of Hospital Transfer - Requested Specifics: Other Emergency Center ([facility]
[2022-08-14 17:01] LABS: Basophils % (A) 0 %; Eosinophils % (A) 0 %; HCT 45.3 % (39.0-53.0); HGB 14.7 gm/dL (13.0-17.5); Lymphocytes # (A) 1.3 k/uL (1.0-4.8); Lymphocytes % (A) 13 %; MCH 31.5 pg (25.0-35.0); MCHC 32.4 g/dL (31.0-37.0); MCV 97.2 fL (80.0-100.0); Mean Platelet Volume 8.7; Monocytes # (A) 0.7 k/uL (0-1.0); Monocytes % (A) 7 %; Neutrophils # (A) 8.1 k/uL (1.3-7.7); Neutrophils % (A) 79 %; Platelet Count 121 k/uL (150-450); RBC 4.66 m/uL (4.30-5.90); RDW 13.3 % (11.5-15.5); WBC 10.3 k/uL (3.8-10.6)
[2022-08-14 17:03] LABS: ALT 22 U/L (4-49); AST 58 U/L (17-59); African American GFR (CKD) >90 (>60 ml/min/1.73 sqM); Albumin 3.7 g/dL (3.5-5.0); Alcohol <10 mg/dL; Alkaline Phosphatase 79 U/L (38-126); Anion Gap 8 mmol/L; Blood Urea Nitrogen 14 mg/dL (9-20); Calcium 8.6 mg/dL (8.4-10.2); Carbon Dioxide 26 mmol/L (22-30); Chloride 106 mmol/L (98-107); Glucose 143 mg/dL (74-99); Magnesium 1.9 mg/dL (1.6-2.3); Non-African American GFR(CKD) 87 (>60 ml/min/1.73 sqM); Potassium 3.9 mmol/L (3.5-5.1); Sodium 140 mmol/L (137-145); Total Bilirubin 1.2 mg/dL (0.2-1.3); Total Protein 6.4 g/dL (6.3-8.2)
[2022-08-14] MEDS ORDERED: LORazepam 2 MG/ML INJ IV STA ×2 (17:39→21:56)
[2022-08-14] MEDS ORDERED: SODIUM CHLORIDE 0.9% 1,000 ML IV ONE (17:39)
[2022-08-14] MEDS ORDERED: METOPROLOL TARTRATE 25 MG TAB PO STA (17:40)
[2022-08-14] MEDS ORDERED: ASPIRIN 81 MG PO STA (17:46)
--- NOTE | 2022-08-14 19:29 | XR ---
EXAMINATION: XR chest 2V: 08/14/2022 6:14 PM CLINICAL INDICATION: weakness TECHNIQUE: AP upright portable radiograph COMPARISON: [facility] Assistant topogram from CT 02/01/2020 FINDINGS: Left hemidiaphragm is markedly elevated, up to the level of the left hilum. This was seen on the 01/[address] topogram. There is no major atelectasis or shannon consolidation. There appears to be mild silhouetting of the pu lmonary vasculature by a subtle fine reticular pattern of increased density throughout lung parenchym a which could correlate with mild interstitial phase pulmonary edema if clinically supported; the dif ferential for this subtle finding includes chronic interstitial lung change: clinical delineation req uested. There is no pneumothorax or pleural effusion. IMPRESSION: As discussed, suspect mild interstitial phase pulmonary edema.
[2022-08-14] MEDS ORDERED: ONDANSETRON 4 MG/2 ML VIAL IVP PRN (23:04)
[2022-08-14] MEDS ORDERED: MAG HYDROX/AL HYDROX/SIMETH 30 ML CUP PO PRN (23:04)
[2022-08-14] MEDS ORDERED: NALOXONE 0.4 MG/ML 1 ML VIAL IV PRN (23:04)
[2022-08-14] MEDS ORDERED: ACETAMINOPHEN TAB 325 MG TAB PO PRN (23:04)
--- NOTE | 2022-08-15 00:03 | CT ---
EXAM: CT Head Without Intravenous Contrast CLINICAL HISTORY: Altered mental status TECHNIQUE: Axial computed tomography images of the head/brain without intravenous contrast. CTDI is 49.2 mGy and DLP is 1188.4 mGy-cm. This CT exam was performed using one or more of the following dose reduction techniques: automated exposure control, adjustment of the mA and/or kV according to patient size, and/or use of iterative reconstruction technique. COMPARISON: No relevant prior studies available. FINDINGS: Brain: 2.4 x 1.8 x 2.2 cm (4.8 cc) hyperdense acute left basal ganglia hematoma with slight surrounding edema and localized mass-effect on adjacent left lateral ventricle. Small amount of extension into the bilateral lateral ventricles greatest in the occipital horns. Minimal 2 mm [id number] midline shift at level of third ventricle. Basilar cisterns are intact. No other potential acute stroke. Confluent supratentorial periventricular and subcortical white matter changes. Age- appropriate generalized atrophy. No hydrocephalus. Bones/joints: Unremarkable. No acute fracture. Soft tissues: Unremarkable. Sinuses: Unremarkable as visualized. No acute sinusitis. IMPRESSION: Acute left basal ganglia hematoma with mass-effect and extension into the lateral ventricle. Localized minimal 2 mm [id number] shift at the level of third ventricle adjacent to the hematoma. Non-specific white matter changes, most commonly seen with small vessel disease. <MYCVCSECTION> Communications: 08/15/22 00:10 Call Doctor Regarding Intracranial Hemorrhage, called Dr. Mayer on 08/15 00:10 (-04:00)
[2022-08-15] MEDS ORDERED: LABETALOL 5 MG/ML VIAL MDV IVP STA (00:12)
[2022-08-15 01:07] VITALS: BP 138/100; PULSE 88; RESP 20
[2022-08-15] MEDS ORDERED: FAMOTIDINE 20 MG TAB PO SCH (09:00)
== END 2022-08-15 01:07 | disposition other institution (70) ==
LOC: EC 15:53 → UNDOADMIN 23:07 → 3SCARD 23:07
DX: I62.9 Nontraumatic intracranial hemorrhage, unspecified (principal); E78.5 Hyperlipidemia, unspecified; I10 Essential (primary) hypertension; F17.200 Nicotine dependence, unspecified, uncomplicated; Z79.01 Long term (current) use of anticoagulants; Z79.899 Other long term (current) drug therapy; Z86.73 Personal history of transient ischemic attack (TIA), and cerebral infarction without residual deficits; Z20.822 Contact with and (suspected) exposure to COVID-19; W18.30XA Fall on same level, unspecified, initial encounter
CPT/HCPCS: 99285; 96374; 96375; 96376; 96361 ×6; 93005; 80053; 82550; 82553; 83605; 83735; 84484; 85025; 87635; 71046; 70450; G0480; J2060; 80320